=== PATIENT | female | born 1980 | race Caucasian/White ===

== ENCOUNTER 2019-10-14 15:03 | Emergency (ER) | payer OTHER ==
[2019-10-14] MEDS ORDERED: HYDROmorphone 1 MG/ML Syringe IM ONE (15:59)
[2019-10-14] MEDS ORDERED: Promethazine 25 MG/ML SDV IM ONE (15:59)
--- NOTE | 2019-10-14 15:59 | EDM.PDOC ---
ED HPI GENERAL MEDICAL PROBLEM - General Chief Complaint: Back Pain or Injury Stated Complaint: BACK PAIN Time Seen by Provider: 10/14/19 15:45 Source of Information: Reports: Patient History Limitations: Reports: No Limitations - History of Present Illness INITIAL COMMENTS - FREE TEXT/NARRATIVE: Patient is unfortunate 38-year-old female who presents emergency Department today with complaint of left low back pain. Patient reports pain is similar to previous episodes of sciatica. She says pain started 3 days ago and is progressively worsened since pain is worse with range of motion or ambulation improves with rest does not alleviate. Patient denies any fever, no saddle anesthesia, no loss of bowel or bladder function patient denies any trauma Back Pain Score (Numeric/FACES): 4 - Related Data Home Meds: Home Meds Acetaminophen with Codeine [Tylenol with Codeine #3 Tablet] 1 each PO Q4H PRN # 12 tablet 10/14/19 [Rx] Cyclobenzaprine [Flexeril] 10 mg PO TID PRN #15 tab 10/14/19 [Rx] Mesalamine 1 tab PO DAILY 10/14/19 [History] Mesalamine [Canasa] 1 dose RECTAL DAILY 10/14/19 [History] Past Medical History Gastrointestinal History: Reports: Other (See Below) Other Gastrointestinal History: chronic proctitis [employer] History: Reports: Other (See Below) Other [employer] History: breast surgery Social & Family History - Tobacco Use Smoking Status *Q: Current Some Day Smoker Years of Tobacco use: 5 Packs/Tins Daily: 0.1 - Caffeine Use Caffeine Use: Reports: Coffee - Recreational Drug Use Recreational Drug Use: No ED ROS GENERAL - Review of Systems Review Of Systems: See Below Constitutional: Denies: Fever, Chills Musculoskeletal: Reports: Back Pain ED EXAM,LOWER BACK PAIN/INJURY - Physical Exam Exam: See Below Exam Limited By: No Limitations General Appearance: Alert, WD/WN, Mild Distress Head: Atraumatic, Normocephalic Neck: Normal Inspection, Supple, Non-Tender, Full Range of Motion Respiratory/Chest: No Respiratory Distress, Lungs Clear, Normal Breath Sounds, No Accessory Muscle Use, Chest Non-Tender Cardiovascular: Normal Peripheral Pulses, Regular Rate, Rhythm, No Edema, No Gallop, No JVD, No Murmur, No Rub GI/Abdominal: Normal Bowel Sounds, Soft, Non-Tender, No Organomegaly, No Distention, No Abnormal Bruit, No Mass Back Exam: Other (Moderate left low back tenderness along the paraspinous muscles L4-L5 level with radiation to left SI joint, normal DR T's, negative leg lift bilaterally, no spasm) Neurological: Alert Skin Exam: Warm, Dry Course - Vital Signs Last Recorded V/S: Last Vital Signs Temp 97.5 F 10/14/19 15:42 Pulse 95 10/14/19 15:42 Resp 16 10/14/19 15:42 BP 123/80 10/14/19 15:42 Pulse Ox 97 10/14/19 15:42 Departure - Departure Time of Disposition: 15:58 Disposition: Home, Self-Care 01 Condition: Good Clinical Impression: Lumbar strain Qualifiers: Encounter type: initial encounter Qualified Code(s): S39.012A - Strain of muscle, fascia and tendon of lower back, initial encounter - Discharge Information *PRESCRIPTION DRUG MONITORING PROGRAM REVIEWED*: Yes *COPY OF PRESCRIPTION DRUG MONITORING REPORT IN PATIENT JESS: No Prescriptions: Acetaminophen with Codeine [Tylenol with Codeine #3 Tablet] 1 each PO Q4H PRN # 12 tablet PRN Reason: Pain Cyclobenzaprine [Flexeril] 10 mg PO TID PRN #15 tab PRN Reason: Pain Instructions: Low Back Sprain Referrals: Fang Tucker MD [Primary Care Provider] - Sepsis Event Note - Evaluation Sepsis Screening Result: No Definite Risk - Focused Exam Vital Signs: Vital Signs Temp Pulse Resp BP Pulse Ox 10/14/19 15:42 97.5 F 95 16 123/80 97 Date Exam was Performed: 10/14/19 Time Exam was Performed: 15:56
== END 2019-10-14 16:31 | disposition home or self-care (01) ==
LOC: JD.ED 15:03
DX: S39.012A Strain of muscle, fascia and tendon of lower back, initial encounter (principal); F17.210 Nicotine dependence, cigarettes, uncomplicated; X58.XXXA Exposure to other specified factors, initial encounter
CPT/HCPCS: 96372; 99283; J1170; J2550

== ENCOUNTER 2019-10-15 15:00 | Emergency (ER) | payer OTHER ==
--- NOTE | 2019-10-15 16:16 | EDM.PDOC ---
ED HPI GENERAL MEDICAL PROBLEM - General Chief Complaint: Back Pain or Injury Stated Complaint: BACK PAIN Time Seen by Provider: 10/15/19 16:14 Source of Information: Reports: Patient History Limitations: Reports: No Limitations - History of Present Illness INITIAL COMMENTS - FREE TEXT/NARRATIVE: 38-year-old female returns to the ED for evaluation at the request of [facility] walk-in clinic physician. is struggling with acute onset of left low back pain radiating to her left buttock since October 12. He has had similar problems involving the left side in January of last year which cleared up completely. Worse no falls or known injuries. Pain is worse with certain movements and this morning she could hardly get out of bed. Patient is currently taking Tylenol 3-- one tablet every 4 hrs and Flexeril 10mg every 8hrs and Motrin as needed for pain relief. She attended the walk-in clinic today the physician appreciated that she was rinsing abdominal pain particularly the left lower quadrant on examination which was concerning. The patient reports that she's on her sixth day of her menstrual cycle and does get low back pain with menses. She wasn't aware that her abdomen was necessarily hurting and that this time she is quite hungry. He therefore came from the walk- in clinic for further assessment of abdominal pain. She denies any genitourinary complaints. Onset: Gradual Onset Date: 10/12/19 Duration: Day(s):, Constant, Getting Worse Location: Reports: Abdomen (Diffuse lower abdomen discomfort suprapubically and let right lower quadrant.), Back (Left low back pain radiating to the left buttock but not below the knee.) Quality: Reports: Ache, Sharp (Some muscle spasms occur with certain movements in the left lower back.), Stabbing, Other Severity: Moderate Improves with: Reports: Rest Worsens with: Reports: Movement Context: Reports: Other (No known injuries or trauma.). Denies: Activity, Exercise, Lifting, Sick Contact, Trauma Associated Symptoms: Reports: Malaise. Denies: Chest Pain, Cough, cough w sputum, Loss of Appetite, Nausea/Vomiting, Rash, Seizure, Shortness of Breath, Syncope Treatments [employer]: Reports: NSAIDS, Other (see below) (Motrin) Lower Back Pain Score (Numeric/FACES): 6 - Related Data Allergies Allergy/AdvReac Type Severity Reaction Status Date / Time No Known Allergies Allergy Verified 10/15/19 15:42 Home Meds: Home Meds Acetaminophen with Codeine [Tylenol with Codeine #3 Tablet] 1 each PO Q4H PRN # 12 tablet 10/14/19 [Rx] Cyclobenzaprine [Flexeril] 10 mg PO TID PRN #15 tab 10/14/19 [Rx] Mesalamine 1 tab PO DAILY 10/14/19 [History] Mesalamine [Canasa] 1 dose RECTAL DAILY 10/14/19 [History] oxyCODONE HCl/Acetaminophen [Percocet 5-325 mg Tablet] 1 - 2 each PO Q4H PRN # 20 tablet 10/15/19 [Rx] predniSONE [Prednisone] 20 mg PO ASDIRECTED #15 tablet 10/15/19 [Rx] Past Medical History Gastrointestinal History: Reports: Other (See Below) Other Gastrointestinal History: chronic proctitis--- with no bleeding per rectum appreciated recently. 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 Denies: Fever, Chills HEENT: Reports: No Symptoms Respiratory: Reports: No Symptoms Cardiovascular: Reports: No Symptoms Endocrine: Reports: Fatigue GI/Abdominal: Reports: Abdominal Pain (Mild suprapubic right lower quadrant abdominal pain.), Decreased Appetite. Denies: Constipation, Diarrhea, Flatus, Hematemesis, Hematochezia, Melena, Nausea, Stool Incontinence, Vomiting, Other : Reports: Other (Currently finishing up the 6 day of her menstrual cycle per normal. Period was on time as expected) Musculoskeletal: Reports: Back Pain Skin: Reports: No Symptoms (Last 4 days.) Neurological: Reports: No Symptoms Psychiatric: Reports: No Symptoms Hematologic/Lymphatic: Reports: No Symptoms Immunologic: Reports: No Symptoms ED EXAM, GI/ABD - Physical Exam Exam: See Below Exam Limited By: No Limitations General Appearance: Alert, WD/WN, Mild Distress, Other (He is very tentative in getting up from the bed for examination of her back due to pain. Reports left low back pain radiating into the left buttock.) Eyes: Bilateral: Normal Appearance Respiratory/Chest: No Respiratory Distress, Lungs Clear, Normal Breath Sounds, No Accessory Muscle Use, Chest Non-Tender Cardiovascular: Normal Peripheral Pulses, Regular Rate, Rhythm, No Edema, No Gallop, No Murmur, No Rub GI/Abdominal Exam: Soft, No Organomegaly (lower quadrant.), No Mass, Pelvis Stable, Distended (She is tympanitic to percussion throughout her left hemiabdomen.), Tender (A mildly tender on deep palpation right lower quadrant and right mid abdomen laterally.), Abnormal Bowel Sounds (Sounds are slightly hyperintense active in the ). No: Guarding, Rigid, Rebound Back Exam: Normal Inspection, Decreased Range of Motion, Muscle Spasm (Mild left lower back.), Paraspinal Tenderness (Particularly at L3 L4 L5 facet joints on the left side but also mildly on the right side at L3 and L4. Associated marked tenderness particularly mid and inferior portions of the left sacroiliac joint. No pain on palpation of the right SI joint.) Extremities: Normal Inspection, Normal Range of Motion, Other (Difficulty lifting the left leg off the gurney due to pain in her buttock.). No: Non- Tender Neurological: Alert, Oriented, CN II-XII Intact, Normal Cognition, Normal Reflexes Psychiatric: Normal Affect, Normal Mood Skin Exam: Warm, Dry, Intact, Normal Color, No Rash Course - Vital Signs Last Recorded V/S: Last Vital Signs Temp 37.2 C 10/15/19 15:38 Pulse 78 10/15/19 15:38 Resp 16 10/15/19 15:38 BP 113/79 10/15/19 15:38 Pulse Ox 99 10/15/19 15:38 - Orders/Labs/Meds Meds: Medications Discontinued Medications Generic Name Dose Route Start Last Admin Trade Name Freq PRN Reason Stop Dose Admin Magnesium Citrate 210 ml 10/15/19 16:56 10/15/19 17:03 Citrate Of Magnesia PO 10/15/19 16:57 210 ml ONETIME ONE Administration - Radiology Interpretation Free Text/Narrative:: 38-year-old female attends the ED at the request of the physician from the [place] walk-in clinic. She went there for low back pain assessment artery being able to get out of bed this morning. Initial rapid suggest increased pain in the suprapubic and right lower quadrant of the abdomen and therefore she was sent to the ED for further evaluation. Patient really doesn't complain of any significant abdominal pain. Is a chronic proctitis which I'm unclear whether this represents inflammatory bowel disease or not. She takes mesalamine suppositories once daily. He has not no cine increased blood in her stool. No fever or chills. Examination reveals increased bowel sounds right lower quadrant. Increased tympany to percussion throughout the left hemiabdomen. Mildly tender suprapubically and right and mid lateral abdomen without any rebound or guarding. In regards to her back she shows pain over compression of the facet joints at L3-L4 and L5 bilaterally worse on the left as compared to the right. Also marked tenderness throughout the mid and inferior portion of the left sacroiliac joint. He does not have any true radiculopathy on straight leg raising. Plan KUB to be done. - Re-Assessments/Exams Free Text/Narrative Re-Assessment/Exam: 10/15/19 17:10: LBBB reveals marked increased stool throughout the right hemicolon and the hepatic flexure and mid portions of the transverse colon. After this the colon is air-filled down to the rectal vault. Peers that she does have right hemicolon constipation. You to place her on Citroma or magnesium citrate 7 ounces by mouth when she gets home to provide bowel cleanse relief of the abdominal pain. To place her on prednisone 20 mg twice daily for 5 days and then once in the morning for another 5 days to help relieve pain in the sacroiliac joint and low back. She will continue Motrin 6 mg every 6 hours to relieve pain and inflammation. I also change her pain medication to Percocet 5/325 mg 1-2 tablets every 4 hours for pain relief and to discontinue the Tylenol 3 as it is not giving her any relief. She should expect improvement over the next 3 days if not she should follow-up with her primary care physician and physiotherapy is indicated. Departure - Departure Time of Disposition: 16:57 Disposition: Home, Self-Care 01 Condition: Fair Clinical Impression: Sacroiliitis, Constipation by delayed colonic transit Low back strain Qualifiers: Encounter type: initial encounter Qualified Code(s): S39.012A - Strain of muscle, fascia and tendon of lower back, initial encounter Abdominal pain Qualifiers: Abdominal location: right lower quadrant Qualified Code(s): R10.31 - Right lower quadrant pain - Discharge Information *PRESCRIPTION DRUG MONITORING PROGRAM REVIEWED*: Not Applicable *COPY OF PRESCRIPTION DRUG MONITORING REPORT IN PATIENT JESS: Not Applicable Prescriptions: oxyCODONE HCl/Acetaminophen [Percocet 5-325 mg Tablet] 1 - 2 each PO Q4H PRN # 20 tablet PRN Reason: pain relief. predniSONE [Prednisone] 20 mg PO ASDIRECTED #15 tablet Instructions: Sacroiliac Joint Dysfunction, Constipation, Adult, Low Back Strain Referrals: Fang Tucker MD [Primary Care Provider] - Forms: ED Department Discharge Additional Instructions: Dilation the emergency room today in regards to left lower back pain due to facet joint inflammation at lumbar 3, 4, 5. Also inflammation in the left sacroiliac joint that if I on examination. In regards to the abdominal pain you had increased air throughout the left hemiabdomen and tenderness in the right hemiabdomen of the abdomen reveals constipation involving the right hemicolon and portions of the mid transverse colon in the mid abdomen. Left side was just filled with air. Is bowel cleanse with magnesium citrate 7 ounces by mouth next to 6 ounces of juice of choice taken once. This usually starts to work in 1-2 hours and will usually will make the bowels move 3 or 4 times ending in some diarrhea. Hemoglobin of your low back pain is to be Percocet tablets 5/325 mg one or 2 every 4-6 hours for pain relief as needed. Open 600 mg every 6 hours to reduce pain and inflammation. Prednisone 20 mg twice daily with breakfast and supper first 5 days and then 1 tablet in the morning only for another 5 days. Note she will have some tablets left over from the [employer] machine Take it first tablet tonight. Expect marked improvement over the next 3- 5 days. Follow-up with personal care physician if any further problems occur or you are not getting better in the next 3 days. Course of physical therapy would be indicated if you are not improving. Sepsis Event Note - Evaluation Sepsis Screening Result: No Definite Risk - Focused Exam Vital Signs: Vital Signs Temp Pulse Resp BP Pulse Ox 10/15/19 15:38 37.2 C 78 16 113/79 99 Date Exam was Performed: 10/15/19 Time Exam was Performed: 18:15
[2019-10-15] MEDS ORDERED: Magnesium Citrate Solution 296 ML Bottle PO ONE (16:56)
--- NOTE | 2019-10-15 16:56 | CR ---
Abdomen: Supine view of the abdomen was obtained. Comparison: No previous study. Scattered gas and stool noted within the colon. This does not appear to be obstructive. No soft tissue abnormality is seen. Bony structures appear unremarkable. No abnormal calcifications are seen. Impression: 1. Scattered gas and stool within colon which does not appear to be obstructive. 2. Supine abdominal x-ray is otherwise unremarkable. Diagnostic code #2 Study was dictated in [place] Standard Time
== END 2019-10-15 17:30 | disposition home or self-care (01) ==
LOC: JD.ED 15:00
DX: S39.012A Strain of muscle, fascia and tendon of lower back, initial encounter (principal); M46.1 Sacroiliitis, not elsewhere classified; K59.01 Slow transit constipation; Z79.899 Other long term (current) drug therapy; X58.XXXA Exposure to other specified factors, initial encounter
CPT/HCPCS: 74018; 99283; A9270